=== PATIENT | female | born 1995 | race Caucasian/White ===

== ENCOUNTER 2020-03-11 13:21 | Emergency (ER) | payer SELFPAY ==
--- NOTE | 2020-03-11 13:28 | ED.NAVMDI ---
HPI - Nausea/Vomiting/Diarrhea General Chief complaint: Nausea/Vomiting/Diarrhea Stated complaint: nausea/vomittng Time Seen by Provider: 03/11/20 13:42 Source: patient and RN notes reviewed Mode of arrival: ambulatory Limitations: no limitations History of Present Illness HPI Narrative: 24-year-old female presents with concern for fatigue, nausea, vomiting, having a positive test 5 days ago. 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 Reports she cannot remember when her last normal menstrual period was, perhaps November. She reports she bled for 2 days on January 25. She reports sometimes at night and when she is lying flat she will have a pulling sensation from her umbilicus to her left groin. She denies other abdominal pain, fever, abnormal vaginal discharge, dysuria, urine frequency, urgency. MD elicited complaint: vomiting Related Data Home Medications Medication Instructions Recorded Confirmed No Home Medications 03/11/20 03/11/20 Allergies Allergy/AdvReac Type Severity Reaction Status Date / Time No Known Allergies Allergy Unverified 02/07/19 18:10 Review of Systems Review of Systems: Narrative: CONSTITUTIONAL: Denies malaise, chills, sweats, or fever. Reports fatigue CARDIOVASCULAR: Denies chest pain, palpitations, or edema. RESPIRATORY: Denies cough or dyspnea. GASTROINTESTINAL: Denies abdominal pain, diarrhea, bloody, or mucous stools. Reports nausea and vomiting GENITOURINARY: Denies dysuria or hematuria. MUSCULOSKELETAL: Denies myalgia. All systems reviewed & are unremarkable except as noted in HPI and below PMFSH Comments At time of signature, agree with nursing past medical, surgical, social and family history. There is no relevant family history pertinent to the presenting complaint Exam Narrative: Exam Narrative: GENERAL: Well-appearing, well-nourished, and in no acute distress. HEAD: Normocephalic, atraumatic. EYES: PERRLA, conjunctivae clear, and EOMI. ENT: Nares clear. Mucous membranes moist. NECK: Supple. CHEST: Speaks in full sentences. Clear to auscultation, equal. No respiratory distress. HEART: Regular rate and rhythm. ABDOMEN: Soft. No guarding, rebound tenderness, or rigid. No pulsatilla masses. Bowel sounds present in all four quadrants. Negative Henderson?s sign. No periumbilical tenderness. No Supra public tenderness. Good femoral pulses bilaterally. No hernia noted. No scars or surface trauma. heart tones not detected SKIN: Warm, dry, no rash. NEURO: Alert and oriented x3. PSYCH: Normal mood and affect Course Course Emergency Course: Anticipatory guidance given. Patient explained limited diagnostic capability at [facility], offered transfer to emergency department for further evaluation of her symptoms, patient chooses to not be transferred to the emergency department this time. States she understands reasons to go to the emergency room. Patient advised that she needs to find an POULTICE MACHINE OPERATOR to receive care, patient expresses understanding. Patient is aware of diagnosis, understands and agrees to treatment plan. Anticipatory guidance given. Patient agrees to follow-up as directed and is aware of reasons to seek care at the emergency department. Portions of this record may have been created with voice recognition software Vital Signs Vital signs: Vital Signs Temperature 97.4 F L 03/11/20 13:34 Pulse Rate 76 03/11/20 13:34 Respiratory Rate 16 03/11/20 13:34 Blood Pressure 117/86 03/11/20 13:34 Pulse Oximetry 100 03/11/20 13:34 Temperature 97.4 F L 03/11/20 13:34 Pulse Rate 76 03/11/20 13:34 Respiratory Rate 16 03/11/20 13:34 Blood Pressure 117/86 03/11/20 13:34 Pulse Oximetry 100 03/11/20 13:34 Reviewed. MDM - Nausea/Vomiting/Diarrhea MDM Narrative Medical decision making narrative: Exam findings show no acute concerns or changes; patient is non-toxic appearing and i
[2020-03-11 13:34] VITALS: BP 117/86; PULSE 76; RESP 16; TEMP 36.3; O2SAT 100
== END 2020-03-11 14:26 | disposition home or self-care (01) ==
PROVIDERS: Emergency Provider Nurse Practitioner
DX: Z32.01 Encounter for pregnancy test, result positive (principal)
CPT/HCPCS: 81003; 81025; 99212; G0463

== ENCOUNTER 2021-11-22 13:43 | Outpatient (CLI) | payer OTHER, SELFPAY ==
--- NOTE | 2021-11-23 10:17 | WPDPFTINT ---
PFT Procedure Performed PFT Procedure Performed Plethysmography (Lung Vol) Diffusing Cap (DLCO) Flow Vol Loop Spirometry w/o Bronchodil PFT Interpretation This is a pulmonary function test with spirometry, plethysmography and diffusing capacity. The test was performed and results interpreted in accordance with the 2019 and 2005 ATS/ERS Task Force guidelines respectively using the Global Lung Function Initiative-2012 reference equations. Patient demonstrated good effort and cooperation. Reproducibility criteria were met. The quality of the spirometry maneuver was Grade A. Findings: Spirometry: The contour the inspiratory and expiratory flow tracing are normal. The FVC is 4.18 L, 99% predicted. The FEV1 is 3.11 L, 87% predicted. The FEV1: FVC ratio 75%. Plethysmography: The total lung capacity is 5.21 L, 95% predicted. The functional residual capacity is 2.16 L, 71% predicted. The residual volume is 1.04 L, 70% predicted. Diffusion capacity: The diffusion capacity unadjusted for hemoglobin and carboxyhemoglobin is 23.6, 89% predicted. The diffusing capacity adjusted for alveolar volume is 4.79, 100% predicted. Impression: The spirometry is normal without evidence of an obstructive abnormality. The lung volumes are normal. The diffusing capacity is normal. There are no prior studies for comparison
== END 2021-11-22 13:44 | disposition home or self-care (01) ==
LOC: ANHPFT 13:44
PROVIDERS: Visit Provider Physician Assistant
DX: R06.09 Other forms of dyspnea (principal)
CPT/HCPCS: 94375; 94726; 94729

== ENCOUNTER 2023-10-20 09:36 | Emergency (ER) | payer OTHER, MEDICAID, SELFPAY ==
--- NOTE | 2023-10-20 09:41 | ED.WOUNDLAC ---
HPI - Wound/Laceration General Chief Complaint: Wound/Laceration Stated Complaint: cut left thumb Time Seen by Provider: 10/20/23 09:41 Source: patient Mode of arrival: ambulatory Limitations: no limitations History of Present Illness HPI narrative: Patient is a 28-year-old female who presents with laceration to base of left thumb. Reports to happen yesterday and went the ER but waited 6 hours and left without being seen. Tetanus shot was updated prior to leaving. States she has cleaned it and applied Neosporin. Concern for infection. Related Data Allergies Allergy/AdvReac Type Severity Reaction Status Date / Time No Known Allergies Allergy Verified 10/20/23 09:39 Review of Systems Review of Systems: All systems reviewed & are unremarkable except as noted in HPI and below Constitutional: Constitutional: Denies body ache(s), Denies chills, Denies fatigue, Denies fever(s), Denies headache(s), Denies malaise and Denies weakness Eyes: Eyes: Denies blurry vision, Denies irritation and Denies loss of vision ENT: Denies otalgia, Denies headache(s), Denies nasal discharge, Denies sinus pain and Denies sore throat Cardiovascular: Cardiovascular: Denies chest pain, Denies irregular heart rhythm and Denies dyspnea Respiratory: Respiratory: Denies dyspnea Gastrointestinal: Gastrointestinal: Denies abdominal pain, Denies melena, Denies hematochezia, Denies diarrhea, Denies nausea and Denies vomiting Musculoskeletal: Musculoskeletal: Denies back pain, Denies myalgias and Denies arthralgias Integumentary/Breasts: Skin/Breast: Denies pruritus, Denies rash and Reports wounds Neurologic: Denies headache(s), Denies loss of vision and Denies weakness Psychiatric: Psychiatric: Reports no additional psychiatric complaints Endocrine: Endocrine: Denies fatigue PMFSH Comments At time of signature, agree with nursing past medical, surgical, social and family history. There is no relevant family history pertinent to the presenting complaint. Exam Const: General: cooperative, healthy appearing, comfortable, no acute distress and well nourished Nutritional Appearance: well nourished Orientation/consciousness: patient oriented x3 Limitations: no limitations HENMT: Head: normal to inspection, normocephalic and atraumatic Ears: hearing grossly normal bilaterally and external ears normal Face/Nose/Sinus: Normal external nose present, normal facial exam and face symmetric Face and sinus: normal facial exam and face symmetric Mouth: Yes lip normal Eyes: General: appearance normal, both eyes and all related structures Alignment and Position: alignment normal and position normal Periorbital: periorbital findings normal Eyelids: eyelids normal Pupils: Equal, round and reactive pupils present EOM: EOMs intact bilaterally Neck: Neck: normal visual inspection, full ROM and supple Chest: Chest palpation & inspection: normal inspection of the chest Resp: Effort & Inspection: normal respiratory effort and able to speak in complete sentences Auscultation: clear to auscultation bilaterally Cardio: Rate: regular rate Rhythm: regular rhythm Heart sounds: S1 normal heart sound present and S2 normal heart sound present GI: Inspection: normal to inspection Skin: General skin exam: normal color and no rashes or lesions noted Trauma: laceration left thumb irregular, flap, involves subcutaneous tissue, motor nerve function intact and sensation intact; not actively bleeding, not contaminated and does not involve muscle tissue Neuro: General: patient oriented x3 and moves all extremities Cranial nerves: Yes Equal, round and reactive pupils present Speech: normal speech Gait exam (Neuro): Normal gait present Extrem: General: normal to inspection, full ROM and no edema Hand/finger images: 1. 3 cm laceration. No active bleeding or drainage. No redness or swelling surrounding wound. Psych: Appearance: grossly normal and well kempt Mental
[2023-10-20 09:53] VITALS: BP 128/83; PULSE 79; RESP 16; TEMP 36.9; O2SAT 99
== END 2023-10-20 10:36 | disposition home or self-care (01) ==
PROVIDERS: Emergency Provider Nurse Practitioner Family
DX: S61.012A Laceration without foreign body of left thumb without damage to nail, initial encounter (principal); W45.8XXA Other foreign body or object entering through skin, initial encounter
CPT/HCPCS: 99213; G0463